=== PATIENT | male | born 1965 | race Caucasian/White ===

== ENCOUNTER 2016-06-08 11:24 | Emergency (ER) | payer BC ==
[~2016-06-08] VITALS: Ht 175.3 cm; Wt 80.0 kg
[~2016-06-08 11:24] MED LIST: ATORVASTATIN CA40 MG PO; DIOVAN HC1 PO; DIOVAN160 MG PO; DIOVAN80 MG PO; GLIPIZIDE ER2.5 MG PO; GLIPIZIDE5 M2 PO; GLUCOPHAGE500 MG PO; HYDROCHLOROT25 MG PO; HYZAAR1 TA1 PO; IMDUR30 MG PO; LOSARTAN POTASS50 MG PO; METFORMIN500 MG PO; NESINA25 MG PO
[2016-06-08 11:55] LABS: HEMATOCRIT 39.7 % (39.0-50.0); HEMOGLOBIN 13.7 g/dl (14.0-18.0); IMMATURE GRANULOCYTES 0.2 % (0.0-1.0); MEAN CELL VOLUME 89.4 fL CALC (80.0-100.0); MEAN CORPUSCULAR HGB 30.9 pG CALC (26.0-32.0); MEAN CORPUSCULAR HGB CONC 34.5 g/L CALC (32.0-36.0); NEUT# 4.69 thou/uL (1.82-7.42); RED BLOOD COUNT 4.44 mill/uL (4.70-6.10); RED CELL DISTRI WIDTH 11.6 % (11.5-15.5)
[2016-06-08 12:05] LABS: PROTHROMBIN TIME 10.4 SECONDS (9.0-12.5)
[2016-06-08 12:08] LABS: ALBUMIN 4.8 g/dL (3.2-5.0); ALKALINE PHOSPHATASE 59 u/l (38-126); ANION GAP 17 (6-22 (CALC)); BILIRUBIN, TOTAL 0.4 mg/dL (0.0-1.4); BUN 12 mg/dL (9-20); BUN/CREATININE RATIO 13 (12-20 (CALC)); CARBON DIOXIDE 25 mmol/l (22-30); CHLORIDE 103 mmol/l (95-108); CREATININE 0.9 mg/dL (0.7-1.3); GFR > 60 ML/MIN (>=60 (CALC)); GFR FOR AFR.AMER. > 60 ML/MIN (>=60 (CALC)); GLUCOSE 103 mg/dL (75-110); SGOT/AST 41 u/l (17-59); SGPT/ALT 54 u/l (21-72); SODIUM 142 mmol/l (137-146); TOTAL PROTEIN 7.8 g/dL (6.3-8.2)
[2016-06-08 12:20] LABS: MYOGLOBIN 180 ng/mL (0 - 121)
[2016-06-08] MEDS ORDERED: LOSARTAN POTASS25 MG PO (14:28)
[2016-06-08] MEDS ORDERED: PLAVIX75 MG PO (14:30)
[2016-06-08] MEDS ORDERED: TRULICITY0.75 MG/0. SC (14:30)
[2016-06-08 16:43] VITALS: BP 119/76
== END 2016-06-08 16:44 | disposition home or self-care (01) | DRG 93 ==
LOC: ED 11:24
PROVIDERS: Emergency Medicine
DX: R20.2 Paresthesia of skin (principal); I10 Essential (primary) hypertension; R94.31 Abnormal electrocardiogram [ECG] [EKG]; R25.2 Cramp and spasm

== ENCOUNTER 2016-09-30 22:28 | Emergency (ER) | payer BC ==
[~2016-09-30] VITALS: Ht 175.3 cm; Wt 76.0 kg
[~2016-09-30 22:28] MED LIST changes: +LOSARTAN POTASS25 MG PO; +PLAVIX75 MG PO; +TRULICITY0.75 MG/0. SC
[2016-09-30] MEDS ORDERED: GLIP/METFORM1 TA2 PO (22:40)
[2016-09-30] MEDS ORDERED: FENOFIBRATE145 MG PO (22:47)
[2016-09-30 23:52] LABS: HEMATOCRIT 41.2 % (39.0-50.0); IMMATURE GRANULOCYTES 0.4 % (0.0-1.0); MEAN CELL VOLUME 90.4 fL CALC (80.0-100.0); MEAN CORPUSCULAR HGB 30.7 pG CALC (26.0-32.0); NEUT# 6.94 thou/uL (1.82-7.42); RED BLOOD COUNT 4.56 mill/uL (4.70-6.10); RED CELL DISTRI WIDTH 11.6 % (11.5-15.5)
[2016-09-30 23:59] LABS: ALBUMIN 4.2 g/dL (3.2-5.0); ALKALINE PHOSPHATASE 97 u/l (38-126); ANION GAP 14 (6-22 (CALC)); BILIRUBIN, TOTAL 0.4 mg/dL (0.0-1.4); BUN 16 mg/dL (9-20); BUN/CREATININE RATIO 18 (12-20 (CALC)); CALCIUM 10.1 mg/dL (8.4-10.2); CARBON DIOXIDE 29 mmol/l (22-30); CHLORIDE 99 mmol/l (95-108); CREATININE 0.9 mg/dL (0.7-1.3); GFR > 60 ML/MIN (>=60 (CALC)); GFR FOR AFR.AMER. > 60 ML/MIN (>=60 (CALC)); GLUCOSE 249 mg/dL (75-110); POTASSIUM 3.5 mmol/l (3.5-5.1); SGOT/AST 31 u/l (17-59); SGPT/ALT 44 u/l (21-72); SODIUM 139 mmol/l (137-146)
[2016-10-01 00:11] LABS: MYOGLOBIN 71 ng/mL (0 - 121)
[2016-10-01 00:12] LABS: ACT PARTIAL THROMBO TIME 28.4 SECONDS (20.0-32.5); INTERNATIONAL NORMALIZED RATIO 0.9 RATIO (0.7-1.3)
[2016-10-01 01:08] VITALS: BP 145/76
== END 2016-10-01 01:08 | disposition left against medical advice (07) | DRG 313 ==
LOC: ED 22:28 → ED-I 23:04 → ED 23:04 → ED-I 23:04 → ED 10-01 01:08
PROVIDERS: Emergency Medicine
DX: R07.9 Chest pain, unspecified (principal); Z91.19 Patient's noncompliance with other medical treatment and regimen

== ENCOUNTER 2017-04-24 19:51 | Emergency (ER) | payer BC ==
[~2017-04-24] VITALS: Ht 175.3 cm; Wt 74.8 kg
[~2017-04-24 19:51] MED LIST changes: +FENOFIBRATE145 MG PO; +GLIP/METFORM1 TA2 PO
[2017-04-24 21:05] VITALS: BP 120/80
== END 2017-04-24 21:10 | disposition home or self-care (01) | DRG 605 ==
LOC: ED 19:51
DX: S61.213A Laceration without foreign body of left middle finger without damage to nail, initial encounter (principal); W26.8XXA Contact with other sharp object(s), not elsewhere classified, initial encounter; Y93.E8 Activity, other personal hygiene; Y92.89 Other specified places as the place of occurrence of the external cause

== ENCOUNTER 2017-10-23 08:12 | Emergency (ER) | payer BC ==
[~2017-10-23] VITALS: Ht 175.3 cm; Wt 75.0 kg
[2017-10-23] MEDS ORDERED: BYSTOLIC10 MG PO (08:22)
[2017-10-23] MEDS ORDERED: TRULICITY1.5 MG/0.5 SC (08:23)
[2017-10-23] MEDS ORDERED: PEPCID20 MG PO (08:34)
[2017-10-23] MEDS ORDERED: BENADRYL 50MG C50 MG PO (08:34)
[2017-10-23] MEDS ORDERED: MEDDOSEPAK PO (08:34)
[2017-10-23 08:35] VITALS: BP 129/96
== END 2017-10-23 09:13 | disposition home or self-care (01) | DRG 918 ==
LOC: ED 08:12
DX: T49.8X1A Poisoning by other topical agents, accidental (unintentional), initial encounter (principal); E11.9 Type 2 diabetes mellitus without complications; I10 Essential (primary) hypertension; L25.0 Unspecified contact dermatitis due to cosmetics; Y92.513 Shop (commercial) as the place of occurrence of the external cause; Z86.73 Personal history of transient ischemic attack (TIA), and cerebral infarction without residual deficits

== ENCOUNTER 2017-12-12 23:12 | Emergency (ER) | payer OTHER, BC ==
[~2017-12-12] VITALS: Ht 175.3 cm; Wt 71.6 kg
[~2017-12-12 23:12] MED LIST changes: +BENADRYL 50MG C50 MG PO; +BYSTOLIC10 MG PO; +MEDDOSEPAK PO; +PEPCID20 MG PO; +TRULICITY1.5 MG/0.5 SC
[2017-12-12] MEDS ORDERED: FLEXERIL5 M1 PO (23:35)
[2017-12-12] MEDS ORDERED: VOLTAREN - GENE75 MG PO (23:35)
[2017-12-13 00:13] VITALS: BP 194/113
== END 2017-12-13 00:13 | disposition home or self-care (01) | DRG 563 ==
LOC: ED 23:12
DX: S39.012A Strain of muscle, fascia and tendon of lower back, initial encounter (principal); S80.01XA Contusion of right knee, initial encounter; S80.11XA Contusion of right lower leg, initial encounter; V58.5XXA Driver of pick-up truck or van injured in noncollision transport accident in traffic accident, initial encounter; Y92.411 Interstate highway as the place of occurrence of the external cause

== ENCOUNTER 2018-02-25 16:08 | Emergency (ER) | payer BC ==
[~2018-02-25] VITALS: Ht 175.3 cm; Wt 80.0 kg
[~2018-02-25 16:08] MED LIST changes: +FLEXERIL5 M1 PO; +VOLTAREN - GENE75 MG PO
[2018-02-25] MEDS ORDERED: PRAVASTATIN SOD20 MG PO (17:39)
[2018-02-25] MEDS ORDERED: MONTELUKAST SOD10 MG PO (17:39)
[2018-02-25] MEDS ORDERED: HYZAAR1 TA2 PO (17:41)
[2018-02-25 17:56] VITALS: BP 142/88
== END 2018-02-25 17:56 | disposition home or self-care (01) | DRG 563 ==
LOC: ED 16:08
DX: S63.502A Unspecified sprain of left wrist, initial encounter (principal); E11.9 Type 2 diabetes mellitus without complications; I10 Essential (primary) hypertension; F17.200 Nicotine dependence, unspecified, uncomplicated; W01.0XXA Fall on same level from slipping, tripping and stumbling without subsequent striking against object, initial encounter; Y92.007 Garden or yard of unspecified non-institutional (private) residence as the place of occurrence of the external cause; Z86.73 Personal history of transient ischemic attack (TIA), and cerebral infarction without residual deficits

== ENCOUNTER 2018-08-13 10:22 | Emergency (ER) | payer BC ==
[~2018-08-13] VITALS: Ht 175.3 cm; Wt 72.0 kg
[~2018-08-13 10:22] MED LIST changes: +HYZAAR1 TA2 PO; +MONTELUKAST SOD10 MG PO; +PRAVASTATIN SOD20 MG PO
[2018-08-13] MEDS ORDERED: DULERA1 AE1 IN (10:31)
[2018-08-13] MEDS ORDERED: FLONASE AL50 MCG/ACT (11:35)
[2018-08-13] MEDS ORDERED: CEPHALEXIN500 M1 PO (11:35)
[2018-08-13] MEDS ORDERED: ROBITUSSIN AC10 ML PO (11:35)
[2018-08-13 11:38] VITALS: BP 160/90
== END 2018-08-13 11:50 | disposition home or self-care (01) | DRG 153 ==
LOC: ED 10:22
DX: J06.9 Acute upper respiratory infection, unspecified (principal); J32.9 Chronic sinusitis, unspecified; J02.9 Acute pharyngitis, unspecified; E11.9 Type 2 diabetes mellitus without complications; I10 Essential (primary) hypertension; F17.210 Nicotine dependence, cigarettes, uncomplicated; Z79.84 Long term (current) use of oral hypoglycemic drugs; Z86.73 Personal history of transient ischemic attack (TIA), and cerebral infarction without residual deficits

== ENCOUNTER 2020-12-28 08:42 | Emergency (ER) | payer BC ==
[~2020-12-28] VITALS: Ht 30.5 cm; Wt 75.0 kg
[~2020-12-28 08:42] MED LIST changes: +CEPHALEXIN500 M1 PO; +DULERA1 AE1 IN; +FLONASE AL50 MCG/ACT; +ROBITUSSIN AC10 ML PO
[2020-12-28] MEDS ORDERED: DIOVAN160 MG PO (08:59)
[2020-12-28 10:20] LABS: HEMATOCRIT 44.4 % (39.0-50.0); HEMOGLOBIN 15.2 g/dl (14.0-18.0); IMMATURE GRANULOCYTES 0.1 % (0.0-5.0); MEAN CELL VOLUME 91.5 fL CALC (80.0-100.0); MEAN CORPUSCULAR HGB 31.3 pG CALC (26.0-32.0); MEAN CORPUSCULAR HGB CONC 34.2 g/dL CAL (32.0-36.0); NEUT# 6.6 thou/uL (1.82-7.42); RED BLOOD COUNT 4.85 mill/uL (4.70-6.10); RED CELL DISTRI WIDTH 11.7 % (11.5-15.5)
[2020-12-28 10:34] LABS: ALBUMIN 4.2 g/dL (3.2-5.0); ALKALINE PHOSPHATASE 144 u/l (38-126); AMYLASE 70 u/l (30-110); ANION GAP 12 (6-22 (CALC)); BILIRUBIN, TOTAL 0.5 mg/dL (0.0-1.4); BUN 11 mg/dL (9-20); BUN/CREATININE RATIO 12 (12-20 (CALC)); CARBON DIOXIDE 29 mmol/l (22-30); CHLORIDE 102 mmol/l (95-108); CREATININE 0.9 mg/dL (0.7-1.3); GFR > 60 ML/MIN (>=60 (CALC)); GFR FOR AFR.AMER. > 60 ML/MIN (>=60 (CALC)); SGOT/AST 19 u/l (17-59); SODIUM 139 mmol/l (137-146)
[2020-12-28 10:36] LABS: ACT PARTIAL THROMBO TIME 25.7 SECONDS (20.0-32.5); INTERNATIONAL NORMALIZED RATIO 0.9 RATIO (0.7-1.3); PROTHROMBIN TIME 9.3 SECONDS (9.0-12.5)
[2020-12-28 10:46] LABS: MYOGLOBIN 27 ng/mL (0 - 121)
[2020-12-28 12:50] VITALS: BP 173/104
== END 2020-12-28 12:55 | disposition left against medical advice (07) | DRG 313 ==
LOC: ED 08:42
DX: R07.9 Chest pain, unspecified (principal); E11.9 Type 2 diabetes mellitus without complications; I10 Essential (primary) hypertension; F17.210 Nicotine dependence, cigarettes, uncomplicated; Z86.73 Personal history of transient ischemic attack (TIA), and cerebral infarction without residual deficits; Z79.84 Long term (current) use of oral hypoglycemic drugs; Z91.19 Patient's noncompliance with other medical treatment and regimen
CPT/HCPCS: Q9967

== ENCOUNTER 2021-03-14 19:29 | Emergency (ER) | payer BC ==
[~2021-03-14] VITALS: Ht 175.3 cm; Wt 75.0 kg
[2021-03-14 21:58] LABS: HEMATOCRIT 43.6 % (39.0-50.0); IMMATURE GRANULOCYTES 0.2 % (0.0-5.0); MEAN CELL VOLUME 91.8 fL CALC (80.0-100.0); MEAN CORPUSCULAR HGB 31.6 pG CALC (26.0-32.0); MEAN CORPUSCULAR HGB CONC 34.4 g/dL CAL (32.0-36.0); NEUT# 6.36 thou/uL (1.82-7.42); RED BLOOD COUNT 4.75 mill/uL (4.70-6.10); RED CELL DISTRI WIDTH 11.8 % (11.5-15.5)
[2021-03-14 22:10] LABS: ALBUMIN 3.7 g/dL (3.2-5.0); ALKALINE PHOSPHATASE 103 u/l (38-126); ANION GAP 9 (6-22 (CALC)); BILIRUBIN, TOTAL 0.7 mg/dL (0.0-1.4); BUN 16 mg/dL (9-20); BUN/CREATININE RATIO 21 (12-20 (CALC)); CARBON DIOXIDE 27 mmol/l (22-30); CHLORIDE 102 mmol/l (95-108); CREATININE 0.8 mg/dL (0.7-1.3); GFR > 60 ML/MIN (>=60 (CALC)); GFR FOR AFR.AMER. > 60 ML/MIN (>=60 (CALC)); POTASSIUM 3.9 mmol/l (3.5-5.1); SGOT/AST 16 u/l (17-59); SODIUM 134 mmol/l (137-146); TOTAL PROTEIN 6.5 g/dL (6.3-8.2)
[2021-03-14] MEDS ORDERED: VOLTAREN - GENE75 MG PO (22:22)
[2021-03-14] MEDS ORDERED: FLEXERIL5 M1 PO (22:22)
[2021-03-14 22:26] VITALS: BP 138/77
== END 2021-03-14 22:30 | disposition home or self-care (01) | DRG 552 ==
LOC: ED 19:29
PROVIDERS: Family Medicine
DX: S16.1XXA Strain of muscle, fascia and tendon at neck level, initial encounter (principal); I10 Essential (primary) hypertension; E11.9 Type 2 diabetes mellitus without complications; F17.210 Nicotine dependence, cigarettes, uncomplicated; X58.XXXA Exposure to other specified factors, initial encounter; Z86.73 Personal history of transient ischemic attack (TIA), and cerebral infarction without residual deficits; Z79.02 Long term (current) use of antithrombotics/antiplatelets; Z79.84 Long term (current) use of oral hypoglycemic drugs

== ENCOUNTER 2021-07-31 05:38 | Emergency (ER) | payer OTHER ==
[~2021-07-31] VITALS: Ht 175.3 cm; Wt 73.0 kg
[2021-07-31] VITALS (13 sets, daily range): BP systolic 148–226; BP diastolic 91–137
[2021-07-31 06:06] LABS: HEMATOCRIT 46.8 % (39.0-50.0); HEMOGLOBIN 15.6 g/dl (14.0-18.0); IMMATURE GRANULOCYTES 0.3 % (0.0-5.0); MEAN CELL VOLUME 93.4 fL CALC (80.0-100.0); MEAN CORPUSCULAR HGB 31.1 pG CALC (26.0-32.0); MEAN CORPUSCULAR HGB CONC 33.3 g/dL CAL (32.0-36.0); NEUT# 6.69 thou/uL (1.82-7.42); RED BLOOD COUNT 5.01 mill/uL (4.70-6.10); RED CELL DISTRI WIDTH 11.6 % (11.5-15.5)
[2021-07-31 06:19] LABS: ALBUMIN 4.2 g/dL (3.2-5.0); ALKALINE PHOSPHATASE 130 u/l (38-126); ANION GAP 12 (6-22 (CALC)); BILIRUBIN, TOTAL 0.3 mg/dL (0.0-1.4); BUN 11 mg/dL (9-20); BUN/CREATININE RATIO 15 (12-20 (CALC)); CARBON DIOXIDE 29 mmol/l (22-30); CHLORIDE 100 mmol/l (95-108); CREATININE 0.7 mg/dL (0.7-1.3); GFR FOR AFR.AMER. > 60 ML/MIN (>=60 (CALC)); GFR OTHER RACES > 60 ML/MIN (>=60 (CALC)); POTASSIUM 3.9 mmol/l (3.5-5.1); SGOT/AST 22 u/l (17-59); SODIUM 137 mmol/l (137-146); TOTAL PROTEIN 7.1 g/dL (6.3-8.2)
[2021-07-31 07:09] LABS: URINE BILIRUBIN - DIPSTICK NEGATIVE (NEGATIVE); URINE BLOOD DIPSTICK NEGATIVE (NEGATIVE); URINE COLOR YELLOW; URINE GLUCOSE - DIPSTICK >=1000 mg/dL (NEGATIVE); URINE KETONE NEGATIVE (NEGATIVE); URINE LEUK ESTERASE NEGATIVE (NEGATIVE); URINE PROTEIN - DIPSTICK NEGATIVE (NEG-TRACE); URINE SPECIFIC GRAVITY 1.015; URINE UROBILINOGEN - DIPSTICK 0.2 E.U./dL (0.2)
[2021-07-31 07:10] LABS: URINE NITRITE - DIPSTICK NEGATIVE (Negative)
== END 2021-07-31 08:12 | disposition home or self-care (01) | DRG 639 ==
LOC: ED 05:38
PROVIDERS: Family Medicine
DX: E11.65 Type 2 diabetes mellitus with hyperglycemia (principal); I16.0 Hypertensive urgency; I10 Essential (primary) hypertension; F17.200 Nicotine dependence, unspecified, uncomplicated; Z86.73 Personal history of transient ischemic attack (TIA), and cerebral infarction without residual deficits; Z79.84 Long term (current) use of oral hypoglycemic drugs

== ENCOUNTER 2021-08-20 05:42 | Emergency (ER) | payer OTHER ==
[~2021-08-20] VITALS: Ht 175.3 cm; Wt 72.0 kg
[2021-08-20 05:49] VITALS: BP 145/92
[2021-08-20 06:00] VITALS: BP 132/86
[2021-08-20] MEDS ORDERED: TRULICITY0.75 MG/0. SC (06:29)
[2021-08-20 06:30] VITALS: BP 133/88
[2021-08-20] MEDS ORDERED: LANTUS100 UNIT SC (06:30)
[2021-08-20 07:00] VITALS: BP 146/88
[2021-08-20 07:21] VITALS: BP 146/88
== END 2021-08-20 07:20 | disposition home or self-care (01) | DRG 563 ==
LOC: ED 05:42
DX: S93.401A Sprain of unspecified ligament of right ankle, initial encounter (principal); I10 Essential (primary) hypertension; E11.9 Type 2 diabetes mellitus without complications; W01.0XXA Fall on same level from slipping, tripping and stumbling without subsequent striking against object, initial encounter; Y92.007 Garden or yard of unspecified non-institutional (private) residence as the place of occurrence of the external cause; Z86.73 Personal history of transient ischemic attack (TIA), and cerebral infarction without residual deficits; Z79.84 Long term (current) use of oral hypoglycemic drugs; Z79.4 Long term (current) use of insulin; F17.210 Nicotine dependence, cigarettes, uncomplicated

== ENCOUNTER 2021-09-05 04:52 | Emergency (ER) | payer OTHER ==
[~2021-09-05] VITALS: Ht 175.3 cm; Wt 68.0 kg
[~2021-09-05 04:52] MED LIST changes: +LANTUS100 UNIT SC
[2021-09-05 05:35] VITALS: BP 146/90
== END 2021-09-05 05:35 | disposition home or self-care (01) | DRG 603 ==
LOC: ED 04:52
PROC: 0H9CXZZ Drainage of Left Upper Arm Skin, External Approach (ICD-10-PCS; principal; 2021-09-05)
DX: L02.412 Cutaneous abscess of left axilla (principal); E11.9 Type 2 diabetes mellitus without complications; I10 Essential (primary) hypertension; F17.200 Nicotine dependence, unspecified, uncomplicated; Z86.73 Personal history of transient ischemic attack (TIA), and cerebral infarction without residual deficits; Z79.84 Long term (current) use of oral hypoglycemic drugs; Z79.4 Long term (current) use of insulin

== ENCOUNTER 2021-09-30 19:01 | Emergency (ER) | payer OTHER ==
[2021-09-30] VITALS (8 sets, daily range): BP systolic 117–148; BP diastolic 72–85
[~2021-09-30] VITALS: Ht 175.3 cm; Wt 72.7 kg
[2021-09-30 20:03] LABS: IMMATURE GRANULOCYTES 0.2 % (0.0-5.0); MEAN CELL VOLUME 94.2 fL CALC (80.0-100.0); MEAN CORPUSCULAR HGB 31.7 pG CALC (26.0-32.0); MEAN CORPUSCULAR HGB CONC 33.7 g/dL CAL (32.0-36.0); NEUT# 7.26 thou/uL (1.82-7.42); RED BLOOD COUNT 4.29 mill/uL (4.70-6.10); RED CELL DISTRI WIDTH 12.3 % (11.5-15.5)
[2021-09-30 20:06] LABS: HEMATOCRIT 40.4 % (39.0-50.0); HEMOGLOBIN 13.6 g/dl (14.0-18.0)
[2021-09-30 20:20] LABS: ALBUMIN 4.4 g/dL (3.2-5.0); ALKALINE PHOSPHATASE 94 u/l (38-126); ANION GAP 13 (6-22 (CALC)); BILIRUBIN, TOTAL 0.3 mg/dL (0.0-1.4); BUN 18 mg/dL (9-20); BUN/CREATININE RATIO 21 (12-20 (CALC)); CARBON DIOXIDE 27 mmol/l (22-30); CHLORIDE 100 mmol/l (95-108); CREATININE 0.9 mg/dL (0.7-1.3); GFR FOR AFR.AMER. > 60 ML/MIN (>=60 (CALC)); GFR OTHER RACES > 60 ML/MIN (>=60 (CALC)); POTASSIUM 3.9 mmol/l (3.5-5.1); SGOT/AST 30 u/l (17-59); SODIUM 136 mmol/l (137-146)
[2021-09-30] MEDS ORDERED: PAXLOVID PO (20:34)
== END 2021-09-30 20:45 | disposition home or self-care (01) | DRG 179 ==
LOC: ED 19:01
PROVIDERS: Emergency Medicine
DX: U07.1 COVID-19 (principal); R50.9 Fever, unspecified; R52 Pain, unspecified; R05.9 Cough, unspecified; R51.9 Headache, unspecified; J44.9 Chronic obstructive pulmonary disease, unspecified; E11.9 Type 2 diabetes mellitus without complications; Z86.73 Personal history of transient ischemic attack (TIA), and cerebral infarction without residual deficits; F17.200 Nicotine dependence, unspecified, uncomplicated; Z79.84 Long term (current) use of oral hypoglycemic drugs; Z79.4 Long term (current) use of insulin

== ENCOUNTER 2021-11-17 07:28 | Emergency (ER) | payer OTHER ==
[~2021-11-17] VITALS: Ht 175.3 cm; Wt 72.7 kg
[~2021-11-17 07:28] MED LIST changes: +PAXLOVID PO
[2021-11-17 07:34] VITALS: BP 173/84
[2021-11-17] MEDS ORDERED: ASPIRIN 81 LOW81 MG PO (07:47)
[2021-11-17 07:54] LABS: HEMOGLOBIN 14.6 g/dl (14.0-18.0); IMMATURE GRANULOCYTES 0.2 % (0.0-5.0); MEAN CELL VOLUME 92.3 fL CALC (80.0-100.0); MEAN CORPUSCULAR HGB 32.1 pG CALC (26.0-32.0); MEAN CORPUSCULAR HGB CONC 34.8 g/dL CAL (32.0-36.0); NEUT# 6.9 thou/uL (1.82-7.42); RED BLOOD COUNT 4.55 mill/uL (4.70-6.10); RED CELL DISTRI WIDTH 12.1 % (11.5-15.5)
[2021-11-17 08:00] VITALS: BP 136/76
[2021-11-17 08:02] LABS: URINE BILIRUBIN - DIPSTICK NEGATIVE (NEGATIVE); URINE BLOOD DIPSTICK NEGATIVE (NEGATIVE); URINE COLOR YELLOW; URINE GLUCOSE - DIPSTICK >=1000 mg/dL (NEGATIVE); URINE KETONE NEGATIVE (NEGATIVE); URINE LEUK ESTERASE NEGATIVE (NEGATIVE); URINE PH 5.5 (4.5-8.0); URINE PROTEIN - DIPSTICK NEGATIVE (NEG-TRACE); URINE UROBILINOGEN - DIPSTICK 0.2 E.U./dL (0.2)
[2021-11-17 08:04] LABS: ALBUMIN 4.5 g/dL (3.2-5.0); ALKALINE PHOSPHATASE 109 u/l (38-126); ANION GAP 16 (6-22 (CALC)); BILIRUBIN, TOTAL 0.4 mg/dL (0.0-1.4); BUN 13 mg/dL (9-20); BUN/CREATININE RATIO 17 (12-20 (CALC)); CARBON DIOXIDE 26 mmol/l (22-30); CHLORIDE 97 mmol/l (95-108); CREATININE 0.8 mg/dL (0.7-1.3); GFR FOR AFR.AMER. > 60 ML/MIN (>=60 (CALC)); GFR OTHER RACES > 60 ML/MIN (>=60 (CALC)); POTASSIUM 4.2 mmol/l (3.5-5.1); SGOT/AST 30 u/l (17-59); SODIUM 134 mmol/l (137-146); TOTAL PROTEIN 7.6 g/dL (6.3-8.2)
[2021-11-17 08:04] LABS: URINE NITRITE - DIPSTICK NEGATIVE (Negative)
[2021-11-17 08:10] LABS: D-DIMER 0.34 mg/L (0.19-0.60)
[2021-11-17 08:17] LABS: MYOGLOBIN 68 ng/mL (0 - 121)
[2021-11-17 08:23] LABS: ACT PARTIAL THROMBO TIME 27.5 SECONDS (20.0-32.5); PROTHROMBIN TIME 9.5 SECONDS (9.0-12.5)
[2021-11-17 08:30] VITALS: BP 134/78
[2021-11-17] MEDS ORDERED: PLAVIX75 MG PO (08:57)
[2021-11-17 09:00] VITALS: BP 128/77
[2021-11-17 09:19] VITALS: BP 128/77
== END 2021-11-17 09:36 | disposition home or self-care (01) | DRG 313 ==
LOC: ED 07:28
PROVIDERS: Family Medicine
DX: R07.9 Chest pain, unspecified (principal); R20.0 Anesthesia of skin; R20.2 Paresthesia of skin; I10 Essential (primary) hypertension

== ENCOUNTER 2022-03-19 13:51 | Emergency (ER) | payer SELFPAY ==
[~2022-03-19] VITALS: Ht 175.3 cm; Wt 72.0 kg
[~2022-03-19 13:51] MED LIST changes: +ASPIRIN 81 LOW81 MG PO
[2022-03-19 14:42] VITALS: BP 173/109
[2022-03-19 15:00] VITALS: BP 170/103
[2022-03-19 15:30] VITALS: BP 171/112
[2022-03-19 15:46] LABS: BASO% 0.5 % (0-3); EOS% 2.4 % (0-8); HEMATOCRIT 43.2 % (39.0-50.0); HEMOGLOBIN 14.8 g/dl (14.0-18.0); IMMATURE GRANULOCYTES 0.2 % (0.0-5.0); LYMPH% 29.9 % (15-41); MEAN CELL VOLUME 90.6 fL CALC (80.0-100.0); MEAN CORPUSCULAR HGB CONC 34.3 g/dL CAL (32.0-36.0); MONO% 7.1 % (2-13); NEUT# 5.18 thou/uL (1.82-7.42); NEUT% 59.9 % (42-76); RED BLOOD COUNT 4.77 mill/uL (4.70-6.10); RED CELL DISTRI WIDTH 11.9 % (11.5-15.5)
[2022-03-19 16:05] LABS: ALBUMIN 4.3 g/dL (3.2-5.0); ALKALINE PHOSPHATASE 124 u/l (38-126); ANION GAP 9 (6-22 (CALC)); BILIRUBIN, TOTAL 0.3 mg/dL (0.0-1.4); BUN 11 mg/dL (9-20); BUN/CREATININE RATIO 17 (12-20 (CALC)); CARBON DIOXIDE 29 mmol/l (22-30); CHLORIDE 102 mmol/l (95-108); CREATININE 0.7 mg/dL (0.7-1.3); GFR FOR AFR.AMER. > 60 ML/MIN (>=60 (CALC)); GFR OTHER RACES > 60 ML/MIN (>=60 (CALC)); MAGNESIUM 1.9 mg/dL (1.6-2.3); SGOT/AST 29 u/l (17-59); SODIUM 137 mmol/l (137-146); TOTAL PROTEIN 6.9 g/dL (6.3-8.2)
[2022-03-19 16:51] VITALS: BP 206/125
[2022-03-19 17:00] VITALS: BP 206/125
== END 2022-03-19 17:05 | disposition left against medical advice (07) | DRG 639 ==
LOC: ED 13:51
PROVIDERS: Internal Medicine
DX: E11.65 Type 2 diabetes mellitus with hyperglycemia (principal); Z79.4 Long term (current) use of insulin; I10 Essential (primary) hypertension

== ENCOUNTER 2022-05-05 08:16 | Emergency (ER) | payer SELFPAY ==
[~2022-05-05] VITALS: Ht 175.3 cm; Wt 74.8 kg
[2022-05-05] VITALS (19 sets, daily range): BP systolic 111–201; BP diastolic 74–127
[2022-05-05 08:44] LABS: BASO% 0.5 % (0-3); EOS% 1.3 % (0-8); HEMATOCRIT 47.1 % (39.0-50.0); HEMOGLOBIN 15.9 g/dl (14.0-18.0); IMMATURE GRANULOCYTES 0.1 % (0.0-5.0); MEAN CELL VOLUME 91.3 fL CALC (80.0-100.0); MEAN CORPUSCULAR HGB 30.8 pG CALC (26.0-32.0); MEAN CORPUSCULAR HGB CONC 33.8 g/dL CAL (32.0-36.0); MONO% 7.8 % (2-13); NEUT# 7.15 thou/uL (1.82-7.42); NEUT% 71.3 % (42-76); RED BLOOD COUNT 5.16 mill/uL (4.70-6.10)
[2022-05-05 09:08] LABS: ALBUMIN 4.6 g/dL (3.2-5.0); ALKALINE PHOSPHATASE 130 u/l (38-126); ANION GAP 12 (6-22 (CALC)); BUN 20 mg/dL (9-20); BUN/CREATININE RATIO 23 (12-20 (CALC)); CARBON DIOXIDE 31 mmol/l (22-30); CHLORIDE 97 mmol/l (95-108); CREATININE 0.9 mg/dL (0.7-1.3); GFR FOR AFR.AMER. > 60 ML/MIN (>=60 (CALC)); GFR OTHER RACES > 60 ML/MIN (>=60 (CALC)); POTASSIUM 4.2 mmol/l (3.5-5.1); SGOT/AST 32 u/l (17-59); SODIUM 136 mmol/l (137-146); TOTAL PROTEIN 7.6 g/dL (6.3-8.2)
[2022-05-05 09:11] LABS: BILIRUBIN, TOTAL 0.6 mg/dL (0.2-1.3)
== END 2022-05-05 12:45 | disposition short-term general hospital (02) | DRG 282 ==
LOC: ED 08:16
PROVIDERS: Family Medicine
DX: I21.4 Non-ST elevation (NSTEMI) myocardial infarction (principal); E11.9 Type 2 diabetes mellitus without complications; I10 Essential (primary) hypertension; Z79.84 Long term (current) use of oral hypoglycemic drugs; Z86.73 Personal history of transient ischemic attack (TIA), and cerebral infarction without residual deficits; F17.210 Nicotine dependence, cigarettes, uncomplicated
CPT/HCPCS: J1650

== ENCOUNTER 2022-06-22 01:08 | Emergency (ER) | payer SELFPAY ==
[~2022-06-22] VITALS: Ht 175.3 cm; Wt 67.0 kg
[2022-06-22 01:35] VITALS: BP 163/93
[2022-06-22 01:45] VITALS: BP 141/83
[2022-06-22 01:57] VITALS: BP 141/83
== END 2022-06-22 02:06 | disposition home or self-care (01) | DRG 921 ==
LOC: ED 01:08
DX: L76.34 Postprocedural seroma of skin and subcutaneous tissue following other procedure (principal); I10 Essential (primary) hypertension; E11.9 Type 2 diabetes mellitus without complications; Y83.8 Other surgical procedures as the cause of abnormal reaction of the patient, or of later complication, without mention of misadventure at the time of the procedure; Z86.73 Personal history of transient ischemic attack (TIA), and cerebral infarction without residual deficits; Z79.84 Long term (current) use of oral hypoglycemic drugs; Z79.4 Long term (current) use of insulin; Z87.891 Personal history of nicotine dependence; Z95.1 Presence of aortocoronary bypass graft

== ENCOUNTER 2022-08-13 08:38 | Emergency (ER) | payer OTHER, MEDICAID ==
[~2022-08-13] VITALS: Ht 175.3 cm; Wt 68.9 kg
[~2022-08-13 08:38] MED LIST changes: +NORVASC PO; +SM ASPIRIN81 M1 PO; +TOPROL XL50 MG PO
[2022-08-13 08:44] VITALS: BP 149/93
[2022-08-13 09:00] VITALS: BP 148/89
[2022-08-13 09:02] LABS: BASO% 0.4 % (0-3); HEMATOCRIT 46.9 % (39.0-50.0); HEMOGLOBIN 15.3 g/dl (14.0-18.0); IMMATURE GRANULOCYTES 0.1 % (0.0-5.0); LYMPH% 23.1 % (15-41); MEAN CELL VOLUME 92.1 fL CALC (80.0-100.0); MEAN CORPUSCULAR HGB 30.1 pG CALC (26.0-32.0); MEAN CORPUSCULAR HGB CONC 32.6 g/dL CAL (32.0-36.0); MONO% 6.7 % (2-13); NEUT# 6.71 thou/uL (1.82-7.42); NEUT% 67.7 % (42-76); RED BLOOD COUNT 5.09 mill/uL (4.70-6.10); RED CELL DISTRI WIDTH 12.6 % (11.5-15.5)
[2022-08-13 09:15] VITALS: BP 137/82
[2022-08-13 09:16] LABS: ALBUMIN 4.5 g/dL (3.2-5.0); ALKALINE PHOSPHATASE 112 u/l (38-126); ANION GAP 16 (6-22 (CALC)); BILIRUBIN, TOTAL 0.4 mg/dL (0.2-1.3); BUN 12 mg/dL (9-20); BUN/CREATININE RATIO 16 (12-20 (CALC)); CARBON DIOXIDE 26 mmol/l (22-30); CHLORIDE 104 mmol/l (95-108); CREATININE 0.7 mg/dL (0.7-1.3); GFR FOR AFR.AMER. > 60 ML/MIN (>=60 (CALC)); GFR OTHER RACES > 60 ML/MIN (>=60 (CALC)); POTASSIUM 4.3 mmol/l (3.5-5.1); SGOT/AST 27 u/l (17-59); SODIUM 141 mmol/l (137-146); TOTAL PROTEIN 7.5 g/dL (6.3-8.2)
[2022-08-13 09:30] VITALS: BP 139/85
[2022-08-13 09:38] VITALS: BP 139/85
== END 2022-08-13 09:45 | disposition home or self-care (01) | DRG 313 ==
LOC: ED 08:38
PROVIDERS: Family Medicine
DX: R07.89 Other chest pain (principal); I10 Essential (primary) hypertension; E11.9 Type 2 diabetes mellitus without complications; Z95.1 Presence of aortocoronary bypass graft; F17.200 Nicotine dependence, unspecified, uncomplicated; Z79.4 Long term (current) use of insulin; Z79.84 Long term (current) use of oral hypoglycemic drugs

== ENCOUNTER 2022-11-13 20:37 | Emergency (ER) | payer MEDICAID ==
[~2022-11-13] VITALS: Ht 175.3 cm; Wt 65.0 kg
[2022-11-13 20:56] VITALS: BP 143/89
[2022-11-13 21:00] VITALS: BP 139/90
[2022-11-13 21:30] VITALS: BP 131/73
[2022-11-13 22:00] VITALS: BP 119/75
[2022-11-13 22:09] VITALS: BP 132/80
== END 2022-11-13 22:09 | disposition home or self-care (01) ==
LOC: ED 20:37
DX: L76.22 Postprocedural hemorrhage of skin and subcutaneous tissue following other procedure (principal); I10 Essential (primary) hypertension; E11.9 Type 2 diabetes mellitus without complications; Y83.8 Other surgical procedures as the cause of abnormal reaction of the patient, or of later complication, without mention of misadventure at the time of the procedure; Z86.73 Personal history of transient ischemic attack (TIA), and cerebral infarction without residual deficits; Z79.84 Long term (current) use of oral hypoglycemic drugs; Z79.4 Long term (current) use of insulin

== ENCOUNTER 2022-11-14 18:32 | Emergency (ER) | payer MEDICAID ==
[~2022-11-14] VITALS: Ht 175.3 cm; Wt 65.7 kg
[2022-11-14 18:43] VITALS: BP 144/84
[2022-11-14 19:00] VITALS: BP 139/84
[2022-11-14 19:30] VITALS: BP 165/93
[2022-11-14 19:36] VITALS: BP 165/93
== END 2022-11-14 19:36 | disposition home or self-care (01) ==
LOC: ED 18:32
DX: L76.22 Postprocedural hemorrhage of skin and subcutaneous tissue following other procedure (principal); I10 Essential (primary) hypertension; E11.9 Type 2 diabetes mellitus without complications; Y83.8 Other surgical procedures as the cause of abnormal reaction of the patient, or of later complication, without mention of misadventure at the time of the procedure; Z86.73 Personal history of transient ischemic attack (TIA), and cerebral infarction without residual deficits; Z95.1 Presence of aortocoronary bypass graft; Z79.84 Long term (current) use of oral hypoglycemic drugs; Z79.4 Long term (current) use of insulin